=== PATIENT | male | born 1955 | race Caucasian/White ===

== ENCOUNTER 2023-06-21 17:26 | Emergency (ER) | payer MEDICARE ==
[~2023-06-21] VITALS: Ht 180.3 cm; Wt 115.9 kg
[2023-06-21 17:42] VITALS: TEMP 97.7
[2023-06-21] MEDS ORDERED: PERCOCET 5MG/325MG TAB PO ONE (17:55)
[2023-06-21] MEDS ORDERED: ATOR40TA75 PO (18:02)
[2023-06-21] MEDS ORDERED: LOSA25TA13 PO (18:02)
[2023-06-21] MEDS ORDERED: METF-729 PO (18:02)
[2023-06-21] MEDS ORDERED: NIFE10CA2 PO (18:02)
[2023-06-21] MEDS ORDERED: IBUPROFEN 800 MG TAB PO ONE (19:45)
[2023-06-21] MEDS ORDERED: diazePAM 10MG/2ML SYRINGE IM ONE (19:45)
[2023-06-21 20:45] VITALS: BP 125/67; O2SAT 97
[2023-06-21] MEDS ORDERED: IBUP-1022 PO (21:10)
[2023-06-21] MEDS ORDERED: VALI5TAB PO (21:10)
[2023-06-21] MEDS ORDERED: diazePAM 5MG TABLET PO ONE (21:15)
== END 2023-06-21 21:25 | disposition home or self-care (01) ==
LOC: EDBD 17:26 → M ED 17:26
DX: S30.0XXA Contusion of lower back and pelvis, initial encounter (principal); M62.830 Muscle spasm of back; W10.8XXA Fall (on) (from) other stairs and steps, initial encounter; Y92.009 Unspecified place in unspecified non-institutional (private) residence as the place of occurrence of the external cause; M47.814 Spondylosis without myelopathy or radiculopathy, thoracic region; M47.816 Spondylosis without myelopathy or radiculopathy, lumbar region; E11.9 Type 2 diabetes mellitus without complications; I10 Essential (primary) hypertension; Z86.79 Personal history of other diseases of the circulatory system
CPT/HCPCS: 72072; 72110; 73080; 96372; 99284; J3360

== ENCOUNTER → 2023-09-30 | Outpatient (CLI) | payer MEDICARE, MEDICAID ==
[~2023-09-30] MED LIST: ATOR40TA75 PO; IBUP-1022 PO; LOSA25TA13 PO; METF-729 PO; NIFE10CA2 PO; VALI5TAB PO
== END ==
LOC: M RAD 08:17
PROVIDERS: ATTEND Student in an Organized Health Care Education/Training Program
DX: I71.40 Abdominal aortic aneurysm, without rupture, unspecified (principal)